=== PATIENT | female | born 1940 | race Caucasian/White ===

== ENCOUNTER 2017-07-10 08:54 | Emergency (ER) | payer MEDICARE, OTHER ==
--- NOTE | 2017-07-10 09:31 | EKG REPORT ---
SEVERITY:- ABNORMAL ECG - SINUS RHYTHM PROBABLE LEFT ATRIAL ABNORMALITY CONSIDER ANTEROSEPTAL INFARCT : Confirmed by: Rogelio Reyes 10-Jul-2017 09:30:19
[2017-07-10 09:36] LABS: ABSOLUTE EOSINOPHILS # (AUTO) 0.1 10^3/uL (0.0-0.6); ABSOLUTE LYMPHOCYTES (AUTO) 0.3 10^3/uL (0.5-4.7); ABSOLUTE MONOCYTES (AUTO) 0.4 10^3/uL (0.1-1.4); ABSOLUTE NEUT (AUTO) 5.4 10^3/uL (1.7-8.2); BASOPHILS % (AUTO) 0.5 % (0-2); EOSINOPHILS % (AUTO) 1.1 % (0-6); HEMATOCRIT 36.8 % (36.0-47.0); HEMOGLOBIN 12.1 g/dL (12.0-15.5); LYMPHOCYTES % (AUTO) 5.6 % (13-45); MEAN CORPUSCULAR HEMOGLOBIN 29.6 pg (27.0-33.4); MEAN CORPUSCULAR HGB CONC 32.8 g/dL (32.0-36.0); MEAN CORPUSCULAR VOLUME 90 fl (80-97); MONOCYTES % (AUTO) 6.9 % (3-13); PLATELET COUNT 330 10^3/uL (150-450); RED BLOOD COUNT 4.07 10^6/uL (3.72-5.28); RED CELL DISTRIBUTION WIDTH 18.6 % (11.5-14.0); SEGMENTED NEUTROPHILS % (AUTO) 85.9 % (42-78); TOTAL CELLS COUNTED % (AUTO) 100 %; WHITE BLOOD COUNT 6.2 10^3/uL (4.0-10.5)
[2017-07-10] MEDS ORDERED: IPRATROPIUM/ALBUTEROL 0.5-2.5 MG/3 ML AMPUL NEB ONE (09:41)
--- NOTE | 2017-07-10 09:42 | ER Document Report ---
ED General - General Chief Complaint: Chest Pain Stated Complaint: CHEST PAIN Time Seen by Provider: 07/10/17 09:20 Mode of Arrival: Medic Information source: Patient, Relative Notes: The patient is accompanied by her daughter. 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 Patient presents to the emergency room with progressively worsening shortness of breath and generalized weakness over the past week and a half. TRAVEL OUTSIDE OF THE [place] IN LAST 30 DAYS: No - HPI Onset: Last week Onset/Duration: Gradual Quality of pain: No pain Severity: None Pain Level: Denies Associated symptoms: Shortness of breath Exacerbated by: Movement Relieved by: Remaining still Similar symptoms previously: Yes Recently seen / treated by doctor: Yes - Related Data Allergies/Adverse Reactions: aspirin Allergy (Verified 07/10/17 10:57) epinephrine Allergy (Verified 07/10/17 10:57) Past Medical History - General Information source: Patient, Relative - Patient is accompanied by her daughter - Social History Smoking Status: Former Smoker Cigarette use (# per day): No Chew tobacco use (# tins/day): No Smoking Education Provided: No Frequency of alcohol use: None Drug Abuse: None Lives with: Family Family History: None Patient has suicidal ideation: No Patient has homicidal ideation: No - Medical History Medical History: Negative Pulmonary Medical History: Reports: Hx COPD, Other - Lung cancer EENT Medical History: Reports: None Neurological Medical History: Reports: None Endocrine Medical History: Reports: None Renal/ Medical History: Reports: None Malignancy Medical History: Reports: Hx Lung Cancer GI Medical History: Reports: None Traumatic Medical History: Reports: None Infectious Medical History: Reports: None Past Surgical History: Reports: Other - Lung biopsy Review of Systems - Review of Systems Notes: Review of systems: Constitutional: Denies fever, chills. Positive for generalized weakness. EENT: Denies ear pain, sinus tenderness, throat pain, throat swelling. Cardiovascular: Denies chest pain, palpitations. Respiratory: See H&P Abdomen: Denies abdominal pain, nausea, vomiting, diarrhea. Denies BRBPR or melena. Genitourinary: Denies dysuria, pyuria, hematuria, flank pain. Musculoskeletal: See H&P Neurologic: Denies headache, photophobia, neck stiffness, weakness. Denies loss of bowel or bladder function. Denies saddle anesthesia. Skin: Denies rash, lesions. Constitutional: denies: Chills, Fever EENT: No symptoms reported Cardiovascular: No symptoms reported Respiratory: See HPI Gastrointestinal: No symptoms reported Genitourinary: No symptoms reported Female Genitourinary: No symptoms reported Musculoskeletal: No symptoms reported Skin: No symptoms reported Hematologic/Lymphatic: No symptoms reported Neurological/Psychological: No symptoms reported Physical Exam - Vital signs Vitals: Resp BP Pulse Ox 17 153/98 H 96 07/10/17 09:17 07/10/17 09:17 07/10/17 09:17 Notes: Physical exam: GENERAL: 82-year-old female, she is alert, she does appear generalized weak HEAD: Atraumatic, normocephalic. EYES: Pupils equal round and reactive to light, extraocular movements intact, sclera anicteric, conjunctiva are normal. ENT: TMs normal, nares patent, oropharynx clear without exudates. Moist mucous membranes. NECK: Normal range of motion, supple without obvious mass or JVD. LUNGS: Decreased breath sounds bilaterally HEART: Regular rate and rhythm without murmurs, rubs or gallops. ABDOMEN: Soft, normoactive bowel sounds. No tenderness to palpation. No guarding, no rebound. No masses appreciated. EXTREMITIES: 3+ edema which patient states is chronic NEUROLOGICAL: Cranial nerves II through XII grossly intact. Normal speech, moving all extremities. PSYCH: Normal mood, normal affect. SKIN: Warm, Dry, normal turgor, no rashes or lesions noted. Course - Re-evaluation Re-evalutation: 07/10/17 13:54 Note: I did speak to Dr. Romo (the patient's oncologist) who the patient has an appointment with tomorrow. I did go over the patient's symptoms and findings on CT and labs. He suggested may be a trial dose of steroids. I did discuss this with the patient but she does not want to be on the steroids. There is no evidence of infection. The patient has been afebrile. Her white count is normal. I offered her antibiotics but she does not want that either. I will give her a copy of today's labs, CT report as well as a CT on disc so that she can bring those studies to Dr. Romo tomorrow. Patient's prognosis is poor. Dr. Kaufman did bring up that he has brought up hospice with the patient the past and able to do so again tomorrow. At the time of discharge, I have instructed the patient at the bedside with regards to return precautions and follow-up recommendations. The opportunity for questions was given. The patient has verbalized understanding of these instructions and the need for follow-up. 07/10/17 13:56 - Vital Signs Vital signs: Temp Pulse Resp BP Pulse Ox 98.4 F 89 15 147/74 H 96 07/10/17 15:30 07/10/17 09:27 07/10/17 15:01 07/10/17 15:01 07/10/17 15:01 - Laboratory Result Diagrams: 07/10/17 09:13 07/10/17 10:20 Laboratory results interpreted by me: 07/10/17 07/10/17 09:13 10:20 RDW 18.6 H Seg Neutrophils % 85.9 H Lymphocytes % 5.6 L Absolute Lymphocytes 0.3 L Chloride 97 L Carbon Dioxide 33 H Glucose 115 H Creatine Kinase < 20 L - Diagnostic Test Radiology reviewed: Image reviewed, Reports reviewed - X-ray shows a small left pleural effusion with COPD (patient has a known left mediastinal mass). CTA shows no pulmonary emboli. There is some atelectasis and the known mediastinal mass. - EKG Interpretation by Me Rate: Normal Rhythm: NSR - EKG shows normal sinus rhythm with a ventricular rate of 90, no acute ST-T wave changes Discharge - Discharge Clinical Impression: Dyspnea, Lung cancer Condition: Stable Disposition: HOME, SELF-CARE Additional Instructions: Recommendations: Follow-up with Dr. Romo as planned tomorrow. Continue current medicines. Bring a copy of today's lab work, CT report as well as a CT on disc with you when you see Dr. Romo tomorrow. I did speak to got Dr. Romo over the phone and gave him an update on today's test results. Return to the emergency room for shortness of breath or any concerns that you are getting worse.
--- NOTE | 2017-07-10 09:50 | RADIOLOGY REPORT (SQ) ---
EXAM DESCRIPTION: CHEST SINGLE VIEW COMPLETED DATE/TIME: 07/10/2017 9:39 am REASON FOR STUDY: bed 8 cp COMPARISON: None. EXAM PARAMETERS: NUMBER OF VIEWS: One view. TECHNIQUE: Single frontal radiographic view of the chest acquired. RADIATION DOSE: NA LIMITATIONS: None. FINDINGS: LUNGS AND PLEURA: Small left pleural effusion and associated airspace disease. COPD. MEDIASTINUM AND HILAR STRUCTURES: Abnormal density in the AP window and left hilum. HEART AND VASCULAR STRUCTURES: Heart normal in size. Normal vasculature. BONES: No acute findings. HARDWARE: None in the chest. OTHER: No other significant finding. IMPRESSION: Left pleural effusion and associated airspace disease. Suspected left hilar mass. TECHNICAL DOCUMENTATION: JOB ID: [id number] [employer]- All Rights Reserved
[2017-07-10 09:59] LABS: INTERNATIONAL RATION (INR) 0.94; PROTHROMBIN TIME 13.3 SEC (11.4-15.4)
[2017-07-10 10:56] LABS: ALANINE AMINOTRANSFERASE 44 U/L (9-52); ALBUMIN 3.7 g/dL (3.5-5.0); ALKALINE PHOSPHATASE 74 U/L (38-126); ANION GAP 9 (5-19); ASPARTATE AMINO TRANSFERASE 28 U/L (14-36); BILIRUBIN,DIRECT 0.4 mg/dL (0.0-0.4); BILIRUBIN,TOTAL 0.6 mg/dL (0.2-1.3); BLOOD UREA NITROGEN 18 mg/dL (7-20); CALCIUM 9.6 mg/dL (8.4-10.2); CARBON DIOXIDE 33 mmol/L (22-30); CHLORIDE 97 mmol/L (98-107); GLUCOSE 115 mg/dL (75-110); POTASSIUM 4.7 mmol/L (3.6-5.0); SODIUM 138.5 mmol/L (137-145); TOTAL PROTEIN 7.9 g/dL (6.3-8.2)
[2017-07-10 10:57] LABS: CREATINE KINASE < 20 U/L (30-135)
[2017-07-10] MEDS ORDERED: NORMAL SALINE 500 ML IV PRN (11:02)
[2017-07-10 11:08] LABS: CREATINE KINASE MB 0.87 ng/mL (<4.55)
[2017-07-10 11:09] LABS: TROPONIN I < 0.012 ng/mL
--- NOTE | 2017-07-10 12:33 | RADIOLOGY REPORT (SQ) ---
EXAM DESCRIPTION: CTA CHEST COMPLETED DATE/TIME: 07/10/2017 12:03 pm REASON FOR STUDY: sob, cancer (left mediastinum) COMPARISON: Chest x-ray dated 07/10/2017 TECHNIQUE: CT scan of the chest performed using helical scanning technique with dynamic intravenous contrast injection. Images reviewed with lung, soft tissue and bone windows. Reconstructed coronal and sagittal MPR images reviewed. Additional 3 dimensional post-processing performed to develop Maximal Intensity Projection images (PR P). All images stored on PACS. All CT scanners at this facility use dose modulation, iterative reconstruction, and/or weight based d osing when appropriate to reduce radiation dose to as low as reasonably achievable (ALARA). [facility]: Dose Right [facility]: CareDose [facility]: Dose Right [facility]: Teradose 4D [facility]: [employer] CONTRAST TYPE AND DOSE: contrast/concentration: Isovue 370.00 mg/ml; Total Contrast Delivered: 73.0 ml; Total Saline Delivered: 85.1 ml Contrast bolus optimized for the pulmonary arteries. Not diagnostic for the aorta. RENAL FUNCTION: Creatinine 0.89 RADIATION DOSE: CT Rad equipment meets quality standard of care and radiation dose reduction techniq ues were employed. CTDIvol: 18.2 - 24.8 mGy. DLP: 653 mGy-cm. . LIMITATIONS: None. FINDINGS: LUNGS AND PLEURA: Extensive chronic appearing changes and emphysematous changes are identi fied. There are minimal airspace consolidations in the lung bases most consistent with atelectatic c hanges. No pleural effusions are identified. AORTA AND GREAT VESSELS: No aneurysm. Contrast bolus not optimized for the aorta. HEART: No pericardial effusion. No significant coronary artery calcifications. PULMONARY ARTERIES: No emboli visualized in the main pulmonary arteries or the segmental branches. HILAR AND MEDIASTINAL STRUCTURES: A large mixed density mediastinal and left hilar mass is identified extending inferiorly from the level of aortic arch with involvement of the left aortopulmonary windo w and central left hilar region. The mass measures 4.9 x 5.2 cm in greatest diameters. The mass kenisha rounds the central left main pulmonary artery and proximal branches without obvious intraluminal exte nsion. The appearance is suspicious for neoplastic process. HARDWARE: None in the chest. UPPER ABDOMEN: No significant findings. Limited exam. THYROID AND OTHER SOFT TISSUES: No masses. No adenopathy. BONES: No acute or significant finding. 3D MIPS: Confirm above findings. OTHER: No other significant finding. IMPRESSION: No evidence for pulmonary embolic disease. Large mixed density mediastinal left hilar m ass as noted above. Minimal airspace consolidations in the lung bases most consistent with atelectat ic changes. Extensive chronic appearing changes as noted above. Other findings as noted above COMMENT: Quality ID # [id number]: Final reports with documentation of one or more dose reduction techniques (e.g., Automated exposure control, adjustment of the mA and/or kV according to patient size, use of iterative reconstruction technique) TECHNICAL DOCUMENTATION: JOB ID: [id number] [employer]- All Rights Reserved
[2017-07-10 15:19] VITALS: BP 147/74
== END 2017-07-10 15:40 | disposition home or self-care (01) ==
LOC: ER 08:54 → EDBD 08:54 → ER 15:40
DX: R07.9 Chest pain, unspecified (principal); R06.00 Dyspnea, unspecified; C34.92 Malignant neoplasm of unspecified part of left bronchus or lung; Z88.6 Allergy status to analgesic agent
CPT/HCPCS: 93005; 94640; 99285; 36415; 82553; 82550; 85025; 85610; 80053; 84484; 83880; 71045; 71275; 93010; A9270; J7620